=== PATIENT | male | born 1960 | race African-American/Black ===

== ENCOUNTER 2016-09-21 02:59 | Observation (INO) ==
[2016-09-21] MEDS ORDERED: methylPREDNISolone SOD SUC 125 MG/2 ML VIAL IV STA (03:30)
[2016-09-21] MEDS ORDERED: hydrALAZINE 20 MG/1 ML VIAL IV STA (03:30)
[2016-09-21] MEDS ORDERED: ONDANSETRON 4 MG/2 ML VIAL IV STA (03:30)
[2016-09-21] MEDS ORDERED: ASPIRIN 325 MG TABLET PO STA (03:30)
[2016-09-21] MEDS ORDERED: FUROSEMIDE 100 MG/10 ML VIAL IV STA (03:30)
[2016-09-21] MEDS ORDERED: ALBUTEROL/IPRATROPIUM 3 ML NEB RESP TX STA (03:30)
[2016-09-21] MEDS ORDERED: MORPHINE 2 MG/1 ML SYRINGE IV STA (03:30)
[2016-09-21] MEDS ORDERED: NITROGLYCERIN 2% OINT 1 INCH/GM PACK TOP STA (03:30)
[2016-09-21 03:39] LABS: Basophils % 0.4 % (0.0-0.8); Eosinophils # 0.2 10*3/uL (0.0-0.87); Eosinophils % 2.2 % (0.00-10.9); Hematocrit 29.4 VOL% (42.0-52.0); Hemoglobin 9.9 GM/DL (14.0-18.0); Immature Granulocytes % 0.3 %; Immature Granulocytes Absolute 0.02 #; Lymphocytes # 1.9 10*3/uL (1.4-4.0); Lymphocytes % 25.4 % (21.2-54.2); Mean Corpuscular HGB Conc 33.7 GM/DL (32-36); Mean Corpuscular Hemoglobin 32 PG (27-34); Mean Corpuscular Volume 93.6 FL (87-102); Monocytes # 0.7 10*3/uL (0.11-0.8); Monocytes % 8.5 % (1.7-12.7); Neutrophils # 4.8 10*3/uL (1.4-7.4); Neutrophils % 63.2 % (38.7-73.9); Platelet Count 201 T/CUMM (130-400); Red Blood Count 3.14 MC/CUMM (3.8-5.5); Red Cell Distribution Width 15.2 % (9.3-17.3); White Blood Count 7.6 T/CUMM (4-12)
[2016-09-21] MEDS ORDERED: hydrALAZINE 20 MG/1 ML VIAL ONE (03:43)
[2016-09-21] MEDS ORDERED: FUROSEMIDE 100 MG/10 ML VIAL ONE (03:43)
[2016-09-21] MEDS ORDERED: MORPHINE 2 MG/1 ML SYRINGE ONE (03:43)
[2016-09-21] MEDS ORDERED: ASPIRIN 325 MG TABLET ONE (03:43)
[2016-09-21] MEDS ORDERED: NITROGLYCERIN 2% OINT 1 INCH/GM PACK TOP ONE (03:43)
[2016-09-21] MEDS ORDERED: ONDANSETRON 4 MG/2 ML VIAL ONE (03:43)
[2016-09-21] MEDS ORDERED: methylPREDNISolone SOD SUC 125 MG/2 ML VIAL ONE (03:44)
--- NOTE | 2016-09-21 03:48 | Emergency Department Note ---
Willard Kovacs Brittany, am scribing for, and in the presence of, Jaime Crystal MD 03:35. Bonilla Kovacs Charles R, MD, personally performed the services described in this documentation, ascribed by Liseth Lamar in my presence, and it is both accurate and complete 348 . Arrival - Arrival Chief Complaint: Shortness of Breath Stated Complaint: Sob ED Nursing Triage Note: Patient states that he has been having chest pain and shortness of breath that began at 1am this morning. Denies nausea or vomiting. Patient is on dialysis on MWF with last dialysis on Thursday. Other history of HTN. O2 saturation 99% on room air. Mode of Arrival: Wheelchair Limitations: No Limitations Source: Patient Time Seen by Provider: 09/21/16 03:15 - History of Present Illness HPI Narrative: This is a 55 y/o black obese male,who presents to the ED with c/o dyspnea which started at 0100 this morning. He states he has been "off his diet" so to speak. He reports eating a salty diet and drinking sodas over the weekend. He denies any CP. He reports this is not the first time this has happened. Pt has no other complaints/pain in the ED at this time. Pt has a PMHx of HTN, IDDM, and dialysis MWF. Pt denies a surgical Hx. Pt denies a family medical Hx. Pt is a current every day, although he reports he quit smoking 4 days ago, but denies the use of street drugs and alcohol. Onset (ago): hour(s) (Started at 0100 thi morning) Consistency: constant Severity: moderate, similar to previous episodes Allergies/Adverse Reactions: Allergies Allergy/AdvReac Type Severity Reaction Status Date / Time ibuprofen Allergy RASH Verified 09/21/16 03:07 Home Medications: Home Medications Medication Instructions Recorded Confirmed Type Unable To Obtain [Unable to Obtain] 09/21/16 09/21/16 History Review of System - Review of System 12 point system: reviewed and no additional remarkable complaints except as stated - Review of System Cardiovascular: Present: dyspnea on exertion. Absent: chest pain Medical,Surgical,& Family Hx - Medical History Medical History: noncontributory (failure) Cardio: History of: Hypertension Neurology: No history of: Seizures Endocrine: History of: Diabetes Mellitus (IDDM) Renal: History of: Dialysis (MWF), Renal Failure - Social History Smoking Status: Current every day smoker Frequency of Alcohol Use: None Type of Drug Use: None Exam Vital Signs: Vital Signs Temperature 98.1 F 09/21/16 03:25 Pulse Rate 63 09/21/16 03:50 Respiratory Rate 22 09/21/16 03:50 Blood Pressure 234/103 09/21/16 03:25 O2 Sat by Pulse Oximetry 100 09/21/16 03:50 - General General appearance: alert, in no apparent distress - Head Head exam: Present: atraumatic, normocephalic, normal inspection - Eye Eye exam: Present: normal appearance, PERRL, EOMI. Absent: nystagmus, miosis, mydriasis - ENT ENT exam: Present: normal exam, normal oropharynx, mucous membranes moist, TM's normal bilaterally, normal external ear exam - Neck Neck exam: Present: normal inspection, full ROM, trachea midline. Absent: tenderness, meningismus, lymphadenopathy, thyromegaly - Chest Chest inspection: Present: normal inspection, symmetric chest wall rise. Absent : tenderness, rash, abscess - Respiratory Respiratory exam: Present: rales, wheezes - Cardiovascular Cardiovascular exam: Present: regular rate, normal rhythm, normal heart sounds. Absent: murmur, rubs, gallop, clicks, JVD - Abdominal Exam Abdominal exam: Present: soft, normal bowel sounds, other (Protrudent abdomen). Absent: distention, tenderness, guarding, rebound, rigidity Course - Consultations Consultation #1: Hospitalist will admit patient Time: 04:36 Results - Labs CBC & BMP: 09/21/16 03:29 09/21/16 03:29 Lab Results: I have reviewed the patients labs Labs: Laboratory Tests 09/21/16 09/21/16 09/21/16 03:29 03:29 03:29 WBC 7.6 RBC 3.14 L Hgb 9.9 L Hct 29.4 L MCV 93.6 MCH 32 MCHC 33.7 RDW 15.2 Plt Count 201 MPV 11.0 Neut % (Auto) 63.2 Lymph % (Auto) 25.4 Orange % (Auto) 8.5 Eos % (Auto) 2.2 Baso % (Auto) 0.4 Neut # (Auto) 4.8 Lymph # (Auto) 1.9 [place] # (Auto) 0.7 Eos # (Auto) 0.2 Baso # (Auto) 0.0 Immature Gran % 0.3 Nucleated RBC % 0.0 Immature Gran # 0.02 Nucleated RBCs # 0.00 Sodium 137 Potassium 3.8 Chloride 97 L Carbon Dioxide 32 Anion Gap 11.8 BUN 46 H Creatinine 9.40 H GFR Calculation 8 BUN/Creatinine Ratio 4.00 L Glucose 201 H Calculated Osmolality 290.8 Calcium 9.2 Magnesium 2.6 H Total Bilirubin < 0.39 AST 31 ALT 34 Alkaline Phosphatase 144 H Troponin I 0.046 H B-Natriuretic Peptide 911 H Total Protein 7.9 Albumin 3.5 Globulin 4.4 H Albumin/Globulin Ratio 0.7 L Critical Care Time Critical Care Time: Yes Total Critical Care Time: 60 Disposition Clinical Impression: Congestive heart failure, Acute exacerbation of chronic obstructive airways disease, ESRD (end stage renal disease) on dialysis, Acute dyspnea, Atypical chest pain, Elevated troponin Case discussed with: patient, patient's family Disposition: Still a Patient Condition: Guarded Time of Disposition: 04:40
[2016-09-21 04:07] LABS: Alanine Aminotransferase 34 U/L (16-61); Albumin 3.5 G/DL (3.4-5.0); Alkaline Phosphatase 144 U/L (45-117); Aspartate Amino Transferase 31 U/L (0-37); Bilirubin,Total < 0.39 MG/DL (0.2-1.0); Calcium 9.2 MG/DL (8.5-10.1); Total Protein 7.9 G/DL (6.4-8.3)
[2016-09-21 04:08] LABS: Blood Urea Nitrogen 46 MG/DL (7-18); Glucose 201 MG/DL (74-106); Magnesium 2.6 MG/DL (1.8-2.4); Osmolality,Calculated 290.8 MOS/KG (273-304); Potassium 3.8 MMOL/L (3.5-5.1); Sodium 137 MMOL/L (136-145)
[2016-09-21 04:13] LABS: Troponin I Only 0.046 NG/ML (0.00-0.045)
[2016-09-21] MEDS ORDERED: ACETAMINOPHEN 325 MG TABLET PO PRN (04:51)
[2016-09-21] MEDS ORDERED: GLUCAGON 1 MG VIAL IM PRN (04:51)
[2016-09-21] MEDS ORDERED: DEXTROSE 50% 25 GM/50 ML VIAL IV PRN (04:51)
[2016-09-21] MEDS ORDERED: ONDANSETRON 4 MG/2 ML VIAL IV PRN (04:51)
--- NOTE | 2016-09-21 05:00 | Hospitalist History & Physical ---
Assessment and Plan (1) ESRD (end stage renal disease) on dialysis Status: Acute Assessment and plan: Admit to the hospitalist service and monitored MedSurg bed with consult to nephrology for hemodialysis in the a.m. Patient's normal schedule is Thursday he indicates he had a Thursday with 2 L off. Current Visit: Yes (2) Fluid overload, unspecified Status: Acute Assessment and plan: Nephrology consult for hemodialysis. 1800-calorie ADA diet with 1000 mL fluid restriction. Current Visit: Yes (3) Acute dyspnea Status: Acute Assessment and plan: Likely due to fluid overload due to noncompliance with diet over the weekend. Supplemental oxygen hemodialysis in a.m. per nephrology. Current Visit: Yes (4) Diabetes Status: Acute Assessment and plan: Accu-Cheks before meals and at bedtime with submental sliding scale. Patient is unaware of home medications. 1800-calorie ADA diet. Current Visit: Yes Qualifiers: Diabetes mellitus complication status: with kidney complications Diabetes mellitus complication detail: with chronic kidney disease Chronic kidney disease stage: on chronic dialysis History of Present Illness Chief complaint: Short of breath History of present illness: Mr. Merritt is a 55 year old -[place] male with past medical history of iujxfnitbjxl-Ikvvvy-Voqkxdied-Thursday, hypertension, & diabetes presents to the ED tonight with chief complaint of shortness of breath that started approximately 1 AM this morning. Patient reports he had dialysis on Thursday but he feels that they did not pull the fluid off of him. His "friend" is at bedside reports that the had a watermelon over the course of the weekend. Initial workup in the ER included a hemoglobin of 9.9, hematocrit 29.4, BUN 46, creatinine 9.40, glucose 201, mag 2.6 proBNP 911, and chest x-ray is pending. The patient be admitted to the MedSurg unit with monitoring under service the hospital for further evaluation and treatment Home Medications Medication Instructions Recorded Confirmed Type Unable To Obtain [Unable to Obtain] 09/21/16 09/21/16 History Allergies Allergy/AdvReac Type Severity Reaction Status Date / Time ibuprofen Allergy RASH Verified 09/21/16 03:07 Medical,Surgical,& Family Hx - Medical History Cardio: History of: Hypertension Neurology: No history of: Seizures Endocrine: History of: Diabetes Mellitus (IDDM) Renal: History of: Dialysis (MWF), Renal Failure - Surgical History Additional Surgical History: AV graft placement - Family History Family History: Reports;: Family Diabetes, Family Hypertension - Social History Smoking Status: Former smoker Frequency of Alcohol Use: None Type of Drug Use: None Marital Status: Single Lives With:: Significant Other Functional capacity: independent ambulation - Respiratory Respiratory: Present: dyspnea - Gastrointestinal Gastrointestinal: Present: constipation Exam - Constitutional Vitals: Period Temp Pulse Resp BP Sys/Torre Pulse Ox Last 24 Hr 98.1 F-98.1 F 61-71 20-22 234-234/103-103 96-100 General appearance: over weight - Head Head exam: Present: normal inspection - Eye Pupils: Present: ASHKAN - Respiratory Respiratory exam: Present: clear to auscultation bilaterally - Cardiovascular Cardiovascular exam: Present: other (AV graft to right upper arm with positive thrill & bruit) - GI/Abdominal GI/Abdominal exam: Present: normal bowel sounds - Extremities Exam Extremities exam: Present: normal inspection - Neurological Exam Neurological exam: Present: alert, oriented X3 - Psychiatric Psychiatric exam: Present: normal affect, normal mood - Skin Skin exam: Present: normal color Results - Labs CBC & BMP: 09/21/16 03:29 09/21/16 03:29 Lab Results: I have reviewed the past 24 hour labs - Diagnostic Findings Procedure: Chest x-ray: pending Quality Measures - Stroke Presenting Symptoms: Broca's dysphasia
--- NOTE | 2016-09-21 08:16 | XRay Report ---
Single view of the chest. Indication: Shortness of breath. Comparison: February 20, 2014. The heart is enlarged. The pulmonary vasculature is prominent. No consolidation, pneumothorax, or pleural effusion. Degenerative changes are present at the shoulders and spinal column. Impression: Cardiomegaly and venous congestion. PROCEDURE INTERPRETED AT [facility] DEPARTMENT OF RADIOLOGY Final Report Signed by: Dr. Constance Maldonado
[2016-09-21] MEDS: INSULIN REGULAR 100 UNIT/ML SUBCUT SCH ×4 (08:35→20:56)
--- NOTE | 2016-09-21 09:21 | Nephrology Consult Note ---
History of Present Illness Chief complaint: Shortness of breath History of present illness: Mr. Merritt is a 55 year old male with end-stage renal disease who dialyzes on Thursday basis in [facility]. Patient presented to the emergency room earlier this morning with complaints of shortness of breath. The patient states he was sleeping when he awoke about 3 AM this morning with severe shortness of breath. He also was coughing up thick phlegm. The patient had some associated chest pain as well. The patient states his last dialysis was this past Thursday and wonders if he did not have enough pulled off. The patient also thinks that he gained a lot of fluid since his dialysis Thursday stating that he ate some watermelon yesterday. Patient states he had a similar problem with shortness of breath like this in the remote past. He denies any heart disease stating that he had a coronary angiogram done about a year ago that was unremarkable. The patient states his breathing is much improved now and is better since sitting up. ROS: Head -positive headaches ENT - denies sore throat Lymphatics - denies lymphadenopathy Hematology - denies bleeding problems Heart -positive chest pain Lungs -see HPI Abdomen - denies abdominal pain Musculoskeletal -positive arthritis Skin - denies rash Neurology - denies stroke General - denies fever, complains of chills PE: General: in no acute distress Eyes: Pupils are round and reactive, conjunctivae are clear ENT: Nose is clear, O/P is benign Neck: Supple, no thyromegaly Lymphatics: No cervical, supraclavicular or axillary adenopathy Heart: Regular rate and rhythm, no edema Lungs: He has some bibasilar crackles posteriorly, chest expansion symmetric Abdomen: Soft, normoactive bowel sounds, no hepatomegaly Musculoskeletal: No joint erythema or effusions or joint asymmetry Skin: Normal turgor, normal hydration, no rash Neuro/Psych: Alert and cooperative with fair insight Home Medications Medication Instructions Recorded Confirmed Type Unable To Obtain [Unable to Obtain] 09/21/16 09/21/16 History Allergies Allergy/AdvReac Type Severity Reaction Status Date / Time ibuprofen Allergy RASH Verified 09/21/16 03:07 Medical,Surgical,& Family Hx - Medical History Cardio: History of: Hypertension Neurology: No history of: Seizures Endocrine: History of: Diabetes Mellitus (IDDM) Renal: History of: Dialysis (MWF), Renal Failure - Surgical History HEENT Surgeries: Surgical HX of: Eye Surgery (bilateral cataracts) - Family History Family History: Reports;: Family Diabetes, Family Hypertension - Social History Smoking Status: Former smoker (States he quit 5 days ago) Frequency of Alcohol Use: None Type of Drug Use: None Exam - Vital Signs Vital signs: Period Temp Pulse Resp BP Sys/Torre Pulse Ox Last 24 Hr 98.1 F-98.1 F 61-83 18-22 184-234/85-107 96-100 Results - Labs CBC & BMP: 09/21/16 03:29 09/21/16 03:29 Assessment and Plan (1) ESRD (end stage renal disease) on dialysis Status: Acute Assessment and plan: We will plan on hemodialysis tomorrow Current Visit: Yes (2) Hypertension Status: Acute Assessment and plan: Patient states he takes clonidine 0.2 mg twice a day at home he wants to try and come off of this due to side effects. Current Visit: Yes (3) Acute dyspnea Status: Acute Assessment and plan: This patient admits to noncompliance with fluid restriction between his dialysis. We will plan on vigorous ultrafiltration tomorrow as tolerated, the patient is comfortable now sitting up. Current Visit: Yes (4) Diabetes Status: Acute Assessment and plan: Patient takes insulin at home as needed Current Visit: Yes Qualifiers: Diabetes mellitus complication status: with kidney complications Diabetes mellitus complication detail: with chronic kidney disease Chronic kidney disease stage: on chronic dialysis (5) Fluid overload, unspecified Status: Acute Current Visit: Yes
[2016-09-21] MEDS ORDERED: traMADol 50 MG TABLET PO PRN (09:25)
[2016-09-21] MEDS ORDERED: ZALEPLON 5 MG CAPSULE PO PRN (10:00)
[2016-09-21] MEDS: LORazepam 0.5 MG TABLET PO PRN ×2 (10:18→20:50)
[2016-09-21] MEDS: amLODIPine 2.5 MG TABLET PO SCH (10:19)
[2016-09-21] MEDS: cloNIDine 0.1 MG TABLET PO SCH ×2 (10:19→20:50)
[2016-09-21] MEDS ORDERED: hydrALAZINE 20 MG/1 ML VIAL IV PRN (11:36)
[2016-09-21] MEDS ORDERED: MORPHINE 2 MG/1 ML SYRINGE IV PRN (13:10)
--- NOTE | 2016-09-21 14:26 | EKG Report ---
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
[2016-09-21] MEDS: INSULIN NPH/REGULAR 70/30 100 UNIT/ML SUBCUT SCH (18:20)
[2016-09-22 06:13] LABS: Basophils % 0.2 % (0.0-0.8); Eosinophils % 0.1 % (0.00-10.9); Hematocrit 27.5 VOL% (42.0-52.0); Hemoglobin 9.2 GM/DL (14.0-18.0); Immature Granulocytes % 0.7 %; Immature Granulocytes Absolute 0.06 #; Lymphocytes # 1.8 10*3/uL (1.4-4.0); Lymphocytes % 21.4 % (21.2-54.2); Mean Corpuscular HGB Conc 33.5 GM/DL (32-36); Mean Corpuscular Hemoglobin 31 PG (27-34); Mean Corpuscular Volume 92.9 FL (87-102); Mean Platelet Volume 10.9 FL (9.6-12.0); Monocytes # 0.7 10*3/uL (0.11-0.8); Monocytes % 8.4 % (1.7-12.7); Neutrophils # 5.7 10*3/uL (1.4-7.4); Neutrophils % 69.2 % (38.7-73.9); Platelet Count 226 T/CUMM (130-400); Red Blood Count 2.96 MC/CUMM (3.8-5.5); Red Cell Distribution Width 15.4 % (9.3-17.3); White Blood Count 8.2 T/CUMM (4-12)
[2016-09-22 06:49] LABS: Calcium 9.2 MG/DL (8.5-10.1); Magnesium 2.7 MG/DL (1.8-2.4); Osmolality,Calculated 298.8 MOS/KG (273-304); Potassium 4.4 MMOL/L (3.5-5.1)
[2016-09-22] MEDS ORDERED: IRON SUCROSE 100 MG/5 ML VIAL IV SCH (09:30)
[2016-09-22] MEDS: INSULIN NPH/REGULAR 70/30 100 UNIT/ML SUBCUT SCH (10:03)
[2016-09-22] MEDS: INSULIN REGULAR 100 UNIT/ML SUBCUT SCH ×3 (10:03→14:22)
[2016-09-22] MEDS: cloNIDine 0.1 MG TABLET PO SCH (10:05)
[2016-09-22] MEDS: amLODIPine 2.5 MG TABLET PO SCH (10:06)
--- NOTE | 2016-09-22 10:58 | Nephrology Progress Note ---
Nephrology - PN: Subj Interval history: Patient seen on hemodialysis, he is tolerating this well will continue his treatment unchanged. From a renal standpoint it is okay to discharge the patient home today. Exam (PN)-Nephrology - Vital Signs Vital signs: Period Temp Pulse Resp BP Sys/Torre Pulse Ox Last 24 Hr 97.0 F-98.2 F 69-83 18-22 171-201/65-107 93-99 - Lab 09/22/16 06:05 09/22/16 06:05 Most recent lab results Calcium 9.2 MG/DL (8.5-10.1) 09/22/16 06:05 Magnesium 2.7 MG/DL (1.8-2.4) H 09/22/16 06:05 Assessment and Plan (1) ESRD (end stage renal disease) on dialysis Status: Acute Assessment and plan: We will plan on hemodialysis tomorrow Current Visit: Yes (2) Hypertension Status: Acute Assessment and plan: Patient states he takes clonidine 0.2 mg twice a day at home he wants to try and come off of this due to side effects. Current Visit: Yes (3) Acute dyspnea Status: Acute Assessment and plan: This patient admits to noncompliance with fluid restriction between his dialysis. We will plan on vigorous ultrafiltration tomorrow as tolerated, the patient is comfortable now sitting up. Current Visit: Yes (4) Diabetes Status: Acute Assessment and plan: Patient takes insulin at home as needed Current Visit: Yes Qualifiers: Diabetes mellitus complication status: with kidney complications Diabetes mellitus complication detail: with chronic kidney disease Chronic kidney disease stage: on chronic dialysis (5) Fluid overload, unspecified Status: Acute Current Visit: Yes
--- NOTE | 2016-09-22 12:05 | Discharge Summary ---
Hospital Course - Hospital Course Hospital Course: Mr. Merritt is a 55 year old -[place] male with past medical history of ESRD on fkhdrkghevum-Crmsls-Tzjuqiqcs-Thursday, hypertension, & diabetes presented to the ED with chief complaint of shortness of breath that started approximately 1 AM the morning of presentation. Patient reported he had dialysis on Thursday but he felt that they did not pull the fluid off of him. His "friend" is at bedside reported that he had a watermelon over the course of the weekend. Patient was admitted to the hospitalist service. Nephrology was consulted. He underwent HD today. He is eager for discharge. He has now reached maximal benefit of inpatient stay and will be discharged to home. - Time spent with patient Time with patient DS: Less than 30 minutes (25) Diagnosis - Discharge Diagnosis (1) ESRD (end stage renal disease) on dialysis Status: Chronic (2) Fluid overload, unspecified Status: Resolved (3) Diabetes Status: Resolved Discharge Plan - Discharge Data Disposition: Disch To Home/Self Care Condition at Discharge: Stable Discharge Diet: low salt diet Activity: increase activity as tolerated Hygiene: no restrictions Weight Bearing at Discharge: weight bear as tolerated Driving: no restrictions Contact your physician if you experience:: fever over 101, Shortness of breath - Discharge Medications New Insulin NPH/Regular 70/30 [HumuLIN 70/30] 20 unit SUBCUT BIDAC unit amLODIPine [Norvasc] 5 mg PO DAILY #30 tablet cloNIDine TAB [Catapres Tab] 0.1 mg PO BID #60 tablet Discontinued cloNIDine TAB [Catapres Tab] 1 tablet PO TID - Follow Up or Referral - Forms/Instructions Exam - Constitutional Vitals: Period Temp Pulse Resp BP Sys/Torre Pulse Ox Last 24 Hr 97.3 F-98.2 F 69-76 18-22 171-201/65-96 98-99 General appearance: normal weight - Head Head exam: Present: normocephalic, atraumatic - Eye Eye exam: Present: EOMI Pupils: Present: ASHKAN - ENT ENT exam: Present: normal exam - Neck Neck exam: Present: normal inspection - Respiratory Respiratory exam: Present: clear to auscultation bilaterally. Absent: rhonchi, wheezes - Cardiovascular Cardiovascular exam: Present: regular rate and rhythm - GI/Abdominal GI/Abdominal exam: Present: normal bowel sounds, soft. Absent: tenderness, rebound - Extremities Exam Extremities exam: Present: normal inspection - Back Exam Back exam: Present: normal inspection - Neurological Exam Neurological exam: Present: alert, oriented X3 - Psychiatric Psychiatric exam: Present: normal affect, normal mood - Skin Skin exam: Present: warm, intact Discharge Results Labs on day of discharge: Labs from last 24 hours 09/22/16 09/22/16 09/22/16 08:22 06:05 06:05 WBC 8.2 RBC 2.96 L Hgb 9.2 L Hct 27.5 L MCV 92.9 MCH 31 MCHC 33.5 RDW 15.4 Plt Count 226 MPV 10.9 Neut % (Auto) 69.2 Lymph % (Auto) 21.4 [place] % (Auto) 8.4 Eos % (Auto) 0.1 Baso % (Auto) 0.2 Neut # (Auto) 5.7 Lymph # (Auto) 1.8 [place] # (Auto) 0.7 Eos # (Auto) 0.0 Baso # (Auto) 0.0 Immature Gran % 0.7 Nucleated RBC % 0.0 Immature Gran # 0.06 Nucleated RBCs # 0.00 Sodium 137 Potassium 4.4 Chloride 97 L Carbon Dioxide 30 Anion Gap 14.4 BUN 79 H Creatinine 12.10 H GFR Calculation 6 BUN/Creatinine Ratio 6.00 Glucose 142 H POC Glucose 193 H Calculated Osmolality 298.8 Calcium 9.2 Magnesium 2.7 H 09/21/16 09/21/16 20:21 15:56 WBC RBC Hgb Hct MCV MCH MCHC RDW Plt Count MPV Neut % (Auto) Lymph % (Auto) [place] % (Auto) Eos % (Auto) Baso % (Auto) Neut # (Auto) Lymph # (Auto) [place] # (Auto) Eos # (Auto) Baso # (Auto) Immature Gran % Nucleated RBC % Immature Gran # Nucleated RBCs # Sodium Potassium Chloride Carbon Dioxide Anion Gap BUN Creatinine GFR Calculation BUN/Creatinine Ratio Glucose POC Glucose 385 H 366 H Calculated Osmolality Calcium Magnesium DS: Provider Date of admission: 09/21/16 04:51 Primary care physician: . No PCP Attending physician on admission: Frank Paul MD Consults: 09/21/16 04:51 Consult to Physician [CONS] Routine Comment: Consulting Provider: Frank Haile Consult to Specialist Group: Nephrology When should Consulting Provider be notified: In am Person Notified: dr. haile Date Notified: 09/21/16 Time Notified: 08:00 Consult Notification Comment: SPOKE TO MITCH ON Thursday09/21/16 10:43 Consult to Physician [CONS] Routine Comment: Eval AV fistula changes Consulting Provider: Leonard Hennessy Person Notified: dr. hennessy Date Notified: 09/21/16 Time Notified: 13:00 Discharging clinician: Mary Mckeon MD
[2016-09-22] MEDS ORDERED: PNEUMOCOCCAL VACCINE (13 VALENT) 0.5 ML SYRINGE IM ONE (14:10)
[2016-09-22 14:45] VITALS: BP 135/69
--- NOTE | 2016-09-22 21:04 | General Surgery Consult Note ---
Assessment and Plan (1) Pseudoaneurysm of surgical AV fistula Status: Acute Assessment and plan: These are minimal and will improve with time if the dialysis nurses move the needles around. The patient can be discharged home. I will see him back as needed. History of Present Illness Chief complaint: Right upper arm AV fistula pseudoaneurysms History of present illness: Mr. Merritt is a 55 year old male who has been dialyzing with right upper arm AV fistula and has developed some pseudoaneurysms that I was asked to see him for. The fistula is working well. This note reflects an encounter I had with the patient earlier in the day but he has already been discharged home and I wrote the note. I did see and examine him for Home Medications Medication Instructions Recorded Confirmed Type Insulin NPH/Regular 70/30 [HumuLIN 20 unit SUBCUT BIDAC unit 09/22/16 Rx 70/30] amLODIPine [Norvasc] 5 mg PO DAILY #30 tablet 09/22/16 Rx cloNIDine TAB [Catapres Tab] 0.1 mg PO BID #60 tablet 09/22/16 Rx Allergies Allergy/AdvReac Type Severity Reaction Status Date / Time ibuprofen Allergy RASH Verified 09/21/16 03:07 Medical,Surgical,& Family Hx - Medical History Cardio: History of: Hypertension Neurology: No history of: Seizures Endocrine: History of: Diabetes Mellitus (IDDM) Renal: History of: Dialysis (MWF), Renal Failure - Surgical History HEENT Surgeries: Surgical HX of: Eye Surgery (bilateral cataracts) - Family History Family History: Reports;: Family Diabetes, Family Hypertension - Social History Smoking Status: Former smoker (States he quit 5 days ago) Frequency of Alcohol Use: None Type of Drug Use: None - Constitutional Constitutional: Present: as per HPI - EENT Nose, mouth and throat: Present: as per HPI - Cardiovascular Cardiovascular: Present: as per HPI - Respiratory Respiratory: Present: as per HPI - Gastrointestinal Gastrointestinal: Present: as per HPI - Genitourinary Genitourinary: Present: as per HPI - Musculoskeletal Musculoskeletal: Present: as per HPI - Neurological Neurological: Present: as per HPI - Endocrine Endocrine: Present: as per HPI Hematologic/Lymphatic: Present: as per HPI Exam - Constitutional Vitals: Period Temp Pulse Resp BP Sys/Torre Pulse Ox Last 24 Hr 97.3 F-98.2 F 69-75 18-22 135-197/65-81 98-99 General appearance: no acute distress, over weight - Head Head exam: Present: normal inspection, normocephalic - Eye Eye exam: Present: EOMI Pupils: Present: ASHKAN - ENT ENT exam: Present: normal exam Mouth exam: Present: normal external inspection, normal voice - Neck Neck exam: Present: normal inspection, trachea midline - Respiratory Respiratory exam: Present: clear to auscultation bilaterally. Absent: accessory muscle use, chest wall tenderness - Cardiovascular Cardiovascular exam: Present: RRR. Absent: systolic murmur, tachycardia - GI/Abdominal GI/Abdominal exam: Present: normal bowel sounds, soft. Absent: tenderness, rebound - Extremities Exam Extremities exam: Present: other (There are 2 small pseudoaneurysms in the right upper arm.) - Back Exam Back exam: Present: normal inspection - Neurological Exam Neurological exam: Present: alert, oriented X3 Speech: Present: normal - Skin Skin exam: Present: normal color, warm Quality Measures - Stroke Presenting Symptoms: Broca's dysphasia Results - Labs CBC & BMP: 09/22/16 06:05 09/22/16 06:05
== END 2016-09-22 14:55 | disposition home or self-care (01) ==
LOC: N.ED 02:59 → N.EDINP 02:59 → SUATTDRO 04:51 → N.2E 05:16
PROVIDERS: ADMIT Internal Medicine; ATTEND Internal Medicine

== ENCOUNTER 2016-10-29 10:48 | Observation (INO) ==
[~2016-10-29 10:48] MED LIST: LIDOCAINE 2% 5 ML VIAL ONE; ONDANSETRON 4 MG/2 ML VIAL ONE; PHENYLEPHRINE 1 MG/10 ML SYRINGE IV ONE; PROPOFOL 200 MG/20 ML VIAL IV ONE
[2016-10-29 11:35] LABS: Basophils % 0.2 % (0.0-0.8); Eosinophils # 0.2 10*3/uL (0.0-0.87); Eosinophils % 2.1 % (0.00-10.9); Immature Granulocytes % 0.3 %; Immature Granulocytes Absolute 0.03 #; Lymphocytes # 1.6 10*3/uL (1.4-4.0); Lymphocytes % 17.1 % (21.2-54.2); Mean Corpuscular HGB Conc 34.3 GM/DL (32-36); Mean Corpuscular Hemoglobin 32 PG (27-34); Mean Corpuscular Volume 93.1 FL (87-102); Mean Platelet Volume 10.5 FL (9.6-12.0); Monocytes # 0.9 10*3/uL (0.11-0.8); Monocytes % 9.1 % (1.7-12.7); Neutrophils # 6.8 10*3/uL (1.4-7.4); Neutrophils % 71.2 % (38.7-73.9); Platelet Count 203 T/CUMM (130-400); Red Blood Count 3.76 MC/CUMM (3.8-5.5); Red Cell Distribution Width 16.2 % (9.3-17.3); White Blood Count 9.6 T/CUMM (4-12)
[2016-10-29] MEDS ORDERED: HYDROmorphone 2 MG/1 ML VIAL IM STA (11:48)
[2016-10-29] MEDS ORDERED: ONDANSETRON 4 MG/2 ML VIAL IV STA (11:50)
[2016-10-29] MEDS ORDERED: HYDROmorphone 2 MG/1 ML VIAL ONE (11:51)
[2016-10-29] MEDS ORDERED: ONDANSETRON 4 MG/2 ML VIAL ONE (11:51)
[2016-10-29 11:56] LABS: Alanine Aminotransferase 18 U/L (16-61); Albumin 3.5 G/DL (3.4-5.0); Alkaline Phosphatase 159 U/L (45-117); Aspartate Amino Transferase 19 U/L (0-37); Bilirubin,Total < 0.39 MG/DL (0.2-1.0); Blood Urea Nitrogen 22 MG/DL (7-18); Calcium 9.5 MG/DL (8.5-10.1); Glucose 189 MG/DL (74-106); Potassium 4.1 MMOL/L (3.5-5.1); Sodium 136 MMOL/L (136-145); Total Protein 8.6 G/DL (6.4-8.3)
--- NOTE | 2016-10-29 14:12 | Emergency Department Note ---
Arrival - Arrival Chief Complaint: Abscess Stated Complaint: cyst between leg ED Nursing Triage Note: pt to triage via wc with c/o having hermes rectal abscess. 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 Mode of Arrival: Ambulatory Limitations: No Limitations Source: Patient, Family Time Seen by Provider: 10/29/16 14:04 - History of Present Illness HPI Narrative: Patient complains of a scrotal abscess. States it came up 4 days ago. He has no history of this in the past. He denies any fever. No recent illness. He has a history of hypertension, diabetes and renal failure (dialyzes Thursday). He denies any cardiac history. Allergies/Adverse Reactions: Allergies Allergy/AdvReac Type Severity Reaction Status Date / Time ibuprofen Allergy RASH Verified 10/29/16 11:03 Home Medications: Home Medications Medication Instructions Recorded Confirmed Type Insulin NPH/Regular 70/30 [HumuLIN 20 unit SUBCUT BIDAC unit 09/22/16 Rx 70/30] amLODIPine [Norvasc] 5 mg PO DAILY #30 tablet 09/22/16 Rx cloNIDine TAB [Catapres Tab] 0.1 mg PO BID #60 tablet 09/22/16 Rx Review of System - Review of System 12 point system: reviewed and no additional remarkable complaints except as stated - Review of System Constitutional: Absent: fever Genitourinary male: Present: testicular pain. Absent: discharge, testicular mass Medical,Surgical,& Family Hx - Medical History Cardio: History of: Hypertension Endocrine: History of: Diabetes Mellitus (IDDM) Renal: History of: Dialysis (MWF), Renal Failure - Surgical History HEENT Surgeries: Surgical HX of: Eye Surgery (bilateral cataracts) - Family History Family History: Reports;: Family Diabetes, Family Hypertension - Social History Smoking Status: Former smoker Frequency of Alcohol Use: None Type of Drug Use: None Exam Physical Examination: GENERAL: Alert. No acute distress. HEENT: Normocephalic and atraumatic. There is no nasal drainage. NECK: Normal inspection. Supple. No lymphadenopathy or meningismus. LUNGS: No respiratory distress. ABDOMEN: Soft, nontender and nondistended with normoactive bowel sounds. : Normal uncircumcised external male genitalia. No discharge. There is a 5 x 3 cm abscess to the posterior scrotum, extending into the perineum. Both testicles are tender. BACK: Normal inspection. SKIN: Color normal. Warm and dry. EXTREMITIES: Nontender. Normal range of motion. NEUROLOGICAL/PSYCHIATRIC: Alert and oriented -3 with normal mood and affect. Cranial nerves normal. No motor or sensory deficit. Vital Signs: Vital Signs Temperature 97.9 F 10/29/16 11:13 Pulse Rate 89 10/29/16 12:30 Respiratory Rate 18 10/29/16 12:30 Blood Pressure 181/106 10/29/16 12:30 O2 Sat by Pulse Oximetry 100 10/29/16 11:01 Course - Reevaluation(s) Reevaluation #1: The abscess is a little too large for me to drain here in the ER. I have discussed the patient with Dr. Neal. He is going to see the patient in the ER and take to surgery. He wants the patient held in the ER until he can see him (this may be a couple of hours). Will keep the patient n.p.o. until then. Will also start antibiotics. Dr. Neal prefers Unasyn and gentamicin, however, he requests that I clear this with nephrology. I have paged them. Time: 14:23 Reevaluation #2: I have discussed the patient with Dr. Hansen. He recommends a Unasyn dose of 3 g every 24 hours and a one-time dose of gentamicin 100 mg. Time: 14:30 Results - Labs CBC & BMP: 10/29/16 11:24 10/29/16 11:24 Lab Results: I have reviewed the patients labs Labs: Laboratory Tests 10/29/16 11:24 Total Bilirubin < 0.39 AST 19 ALT 18 Alkaline Phosphatase 159 H Disposition Clinical Impression: Scrotal abscess, ESRD (end stage renal disease) on dialysis, Hypertension Case discussed with: patient, patient's family Disposition: Still a Patient Condition: Stable Time of Disposition: 14:31
[2016-10-29] MEDS ORDERED: HYDROmorphone 2 MG/1 ML VIAL IV STA (14:15)
[2016-10-29] MEDS ORDERED: GENTAMICIN INJ 100 MG in SODIUM CHLORIDE 0.9% 100 ML IV STA (14:31)
[2016-10-29] MEDS ORDERED: AMPICILLIN/SULBACTAM 3,000 MG in SODIUM CHLORIDE 0.9% 100 ML IV STA (14:31)
--- NOTE | 2016-10-29 14:59 | Nephrology Consult Note ---
History of Present Illness Chief complaint: End-stage renal disease in a patient admitted for a leg abscess History of present illness: Mr. Merritt is a 55 year old male who dialyzes on Thursday basis and [facility]. The patient's last dialysis was today prior to presenting here. The patient presented with complaints of any swelling and pain between his legs and into his testicles. The patient states the symptoms started about 3 days prior to his admission. The patient denies having any previous problems like this. He states he was on some ampicillin in the remote past for some upper airway symptoms. He denies any drainage from the swelling area. The patient does have diabetes he states his sugars have been doing pretty well lately. The patient denies any central vein catheters, he dialyzes through a shunt in his right arm. ROS: Head - denies headaches ENT - denies sore throat Lymphatics - denies lymphadenopathy Hematology - denies bleeding problems Heart - denies chest pain Lungs - denies shortness of breath Abdomen - denies abdominal pain Musculoskeletal - denies arthritis, he does complain of some pain and tingling in his toes Skin - denies rash Neurology - denies stroke General - denies fever PE: General: in no acute distress Eyes: Pupils are round and reactive, conjunctivae are clear ENT: Nose is clear, O/P is benign Neck: Supple, no thyromegaly Lymphatics: No cervical, supraclavicular or axillary adenopathy Heart: Regular rate and rhythm, no edema Lungs: Clear to auscultation anteriorly, chest expansion symmetric Abdomen: Soft, normoactive bowel sounds, no hepatomegaly Musculoskeletal: No joint erythema or effusions or joint asymmetry, he has a 5 x 3 cm swollen area in his posterior scrotal region that extends towards the perineum per the ER physician's exam Skin: Normal turgor, normal hydration, no rash Neuro/Psych: Alert and cooperative with good insight Home Medications Medication Instructions Recorded Confirmed Type Insulin NPH/Regular 70/30 [HumuLIN 20 unit SUBCUT BIDAC unit 09/22/16 Rx 70/30] amLODIPine [Norvasc] 5 mg PO DAILY #30 tablet 09/22/16 Rx cloNIDine TAB [Catapres Tab] 0.1 mg PO BID #60 tablet 09/22/16 Rx Allergies Allergy/AdvReac Type Severity Reaction Status Date / Time ibuprofen Allergy RASH Verified 10/29/16 11:03 Medical,Surgical,& Family Hx - Medical History Cardio: History of: Hypertension Neurology: No history of: Seizures Endocrine: History of: Diabetes Mellitus (IDDM) Renal: History of: Dialysis (MWF), Renal Failure - Surgical History HEENT Surgeries: Surgical HX of: Eye Surgery (bilateral cataracts) - Family History Family History: Reports;: Family Diabetes, Family Hypertension - Social History Smoking Status: Former smoker Frequency of Alcohol Use: None Type of Drug Use: None Exam - Vital Signs Vital signs: Period Temp Pulse Resp BP Sys/Torre Pulse Ox Last 24 Hr 97.9 F-97.9 F 89-89 17-18 149-181/83-106 100 Results - Labs CBC & BMP: 10/29/16 11:24 10/29/16 11:24 Assessment and Plan (1) ESRD (end stage renal disease) on dialysis Status: Chronic Assessment and plan: We will continue hemodialysis on a Thursday basis Current Visit: Yes (2) Scrotal abscess Status: Acute Assessment and plan: We will dose the patient with gentamicin and Unasyn we have adjusted it for his dialysis will plan on continuing gentamicin every hemodialysis treatment his Unasyn he will get every 24 hours Current Visit: Yes (3) Diabetic neuropathy Status: Acute Current Visit: Yes (4) Hypertension Status: Acute Current Visit: Yes (5) Diabetes Status: Resolved Assessment and plan: I will monitor his sugars twice a day and administer insulin as needed for sugar greater than 250 as he does at home. Current Visit: No Qualifiers: Diabetes mellitus complication status: with kidney complications Diabetes mellitus complication detail: with chronic kidney disease Chronic kidney disease stage: on chronic dialysis
[2016-10-29] MEDS ORDERED: DEXTROSE 50% 25 GM/50 ML SYRINGE IV PRN ×2 (15:02→18:49)
[2016-10-29] MEDS ORDERED: GLUCAGON 1 MG VIAL IM PRN ×2 (15:02→18:49)
--- NOTE | 2016-10-29 15:37 | XRay Report ---
Portable chest Date: 10/29/2016 Clinical history: Respiratory preoperative evaluation Comparison: 09/29/2016 Technique: Portable AP sitting chest Findings: The heart remains borderline in size with left ventricular prominence and uncoiling of the aorta. Resolution of previously noted pulmonary edema with no pleural effusion. Unremarkable mediastinum with degenerative changes. Impression: No acute cardiopulmonary pathology identified. PROCEDURE INTERPRETED AT [facility] DEPARTMENT OF RADIOLOGY Final Report Signed by: Dr. Padmini Pride
[2016-10-29] MEDS ORDERED: AMPICILLIN/SULBACTAM 3,000 MG VIAL ONE (16:28)
[2016-10-29] MEDS ORDERED: INSULIN REGULAR 100 UNIT/ML SUBCUT SCH (16:30)
--- NOTE | 2016-10-29 17:03 | Urology History & Physical ---
Assessment and Plan - Time spent with patient Time spent with patient: Greater than 30 minutes (1) Perineal abscess Status: Acute Assessment and plan: Antibiotics have been given. He needs incision and drainage. We will plan for this as soon as we can. Current Visit: Yes 12 point system: reviewed and no additional remarkable complaints except as stated - Genitourinary Genitourinary: Present: other (Perineal swelling with pain noticed last for 5 days. He makes no urine) History of Present Illness Chief complaint: Perineal swelling with pain History of present illness: Mr. Merritt is a 55 year old male who has chronic renal failure on hemodialysis now for 6 years. For 5 days ago he noticed some pain and swelling in the perineum is progressively become worse. He presented himself to the urgent care and perineal abscesses been found. He has been given some antibiotics with consultation by Dr. Hansen. He had dialysis this morning. On examination indeed he is got a perineal abscess it is up in the lower part of the scrotum but I think most of this is perineal. I discussed the need for incision and drainage. This was explained to the patient and his . We will clean this up and pack it. Watch the patient overnight and should be able go home tomorrow. Procedure was explained in detail. Risks, complications, outcomes, sequelae, prognosis and alternative therapy was discussed. Patient understood this and agreed to proceed. Home Medications Medication Instructions Recorded Confirmed Type Insulin NPH/Regular 70/30 [HumuLIN 20 unit SUBCUT BIDAC unit 09/22/16 Rx 70/30] amLODIPine [Norvasc] 5 mg PO DAILY #30 tablet 09/22/16 Rx cloNIDine TAB [Catapres Tab] 0.1 mg PO BID #60 tablet 09/22/16 Rx Allergies Allergy/AdvReac Type Severity Reaction Status Date / Time ibuprofen Allergy RASH Verified 10/29/16 11:03 Medical,Surgical,& Family Hx - Medical History Cardio: History of: Hypertension Neurology: No history of: Seizures Endocrine: History of: Diabetes Mellitus (IDDM) Renal: History of: Dialysis (MWF), Renal Failure - Surgical History HEENT Surgeries: Surgical HX of: Eye Surgery (bilateral cataracts) - Family History Family History: Reports;: Family Diabetes, Family Hypertension - Social History Smoking Status: Former smoker Frequency of Alcohol Use: None Type of Drug Use: None Exam - Constitutional Vitals: Period Temp Pulse Resp BP Sys/Torre Pulse Ox Last 24 Hr 97.9 F-97.9 F 89-89 17-18 149-181/83-106 100 General appearance: normal weight - Cardiovascular Cardiovascular exam: Present: regular rate and rhythm - GI/Abdominal GI/Abdominal exam: Present: soft. Absent: tenderness, rebound - Genitourinary Genitourinary: penis with no lesions or discharge, other (Perineal swelling about 4-5 cm long and about 3 cm wide does go up to the lower part of the scrotum) Results - Labs CBC & BMP: 10/29/16 11:24 10/29/16 11:24
[2016-10-29] MEDS ORDERED: PROMETHAZINE 25 MG/1 ML VIAL IM PRN (17:40)
--- NOTE | 2016-10-29 17:49 | Operative Note ---
Date of procedure: 10/29/16 Pre-op diagnosis: Perineal abscess Post-op diagnosis: same Procedure: 55-year-old diabetic black male with chronic renal failure on hemodialysis no some pain and swelling last for 5 days in the perineum. He was seen in urgent care area and he is got a perineal abscesses being brought to surgery for drainage. I&D of perineal abscess was explained at length and in detail. Risks , complications, outcomes, sequela, prognosis and alternative therapy was discussed. Patient understood this and agreed to proceed. Patient is brought to the operative suite given a general LMA anesthetic was tolerated well. He was then prepared and draped in usual sterile manner and placed in lithotomy position. 11 blade was used to incise over the perineum at the abscess. Approximately 30-40 cc of purulent material were drained. Cultures were obtained. Loculations were broken up with a hemostat. The tract went up to the base of the scrotum on the left side. This was irrigated out and any other loculations were broken up. The wound was copiously irrigated normal saline. The wound was then packed with half-inch iodoform gauze. Sterile dressing with fluffs and an OB panics were placed on the patient. Patient tolerates procedure well was awakened anesthesia and sent to recovery room in stable condition. All sponge, needle enhancement counts correct 2. Anesthesia: GETA (25 cc) Surgeon / Physician: Geoffrey Neal Estimated blood loss: other Specimens: other (Cultures) Condition: stable Disposition: PACU Results - Labs CBC & BMP: 10/29/16 11:24 10/29/16 11:24 Discharge Plan - Discharge Medications No Action Insulin NPH/Regular 70/30 [HumuLIN 70/30] 20 unit SUBCUT BIDAC unit amLODIPine [Norvasc] 5 mg PO DAILY #30 tablet cloNIDine TAB [Catapres Tab] 0.1 mg PO BID #60 tablet - Follow Up or Referral - Forms/Instructions
--- NOTE | 2016-10-29 17:57 | Anesthesia Post-Op ---
Anesthesia Post OP - Post Ansesthetic Evaluation Patient seen in post op: Yes Resp: within normal limits CV: within normal limits Mental: within normal limits (pt remains sedate) Temp: within normal limits [id number]: within normal limits Nausea and Vomiting: within normal limits Pain: within normal limits
[2016-10-29] MEDS ORDERED: fentaNYL 100 MCG/2 ML VIAL ONE (17:59)
[2016-10-29] MEDS ORDERED: SEVOFLURANE 1 UNIT/15 MINUTE INH ONE (17:59)
[2016-10-29] MEDS ORDERED: MIDAZOLAM 2 MG/2 ML VIAL ONE (17:59)
[2016-10-29] MEDS ORDERED: ACETAMINOPHEN 1,000 MG/100 ML VIAL IV ONE (18:00)
--- NOTE | 2016-10-29 19:22 | Hospitalist Consult Note ---
Assessment and Plan (1) Perineal abscess Status: Acute Assessment and plan: s/p I&D, received amp and gent, will start meropenem, blood cx pending. Current Visit: Yes (2) ESRD (end stage renal disease) on dialysis Status: Chronic Assessment and plan: dialysis m,w,f Current Visit: Yes (3) Diabetes Status: Resolved Assessment and plan: hgb a1c, cont 70/30, ISC Current Visit: No Qualifiers: Diabetes mellitus complication status: with kidney complications Diabetes mellitus complication detail: with chronic kidney disease Chronic kidney disease stage: on chronic dialysis (4) Hypertension Status: Acute Assessment and plan: cont clonidine and norvasc Current Visit: Yes (5) Diabetic neuropathy Status: Acute Assessment and plan: gabapentin Current Visit: Yes (6) WIN (obstructive sleep apnea) Status: Acute Assessment and plan: refuses cpap Current Visit: Yes History of Present Illness - Data of Consult Consult date: 10/29/16 Requesting Physician: Geoffrey Neal Primary care physician: Frank Hansen - Consult Narrative Reason for consult: diabetes History of present illness: Mr. Merritt is a 55 year old male with a history of hypertension, end-stage renal disease dialysis dependent and insulin-dependent diabetes admitted by Dr. Neal for a perineal abscess. Patient is failed outpatient antibiotics. The abscess is located and part of the scrotum and needs to be I&D. Patient was taken to the OR today and I indeed. We were consulted for help in managing his hypertension and insulin-dependent diabetes. Patient did receive dialysis today at which time they removed 2600 mL's of fluid. His blood pressure would not tolerate any more fluid removal. His last blood sugar was 156. He takes 20 units of 70/30 twice a day. CC: Geoffrey Neal MD - Home Medications and Allergies Home Medications: Home Medications Medication Instructions Recorded Confirmed Type cloNIDine TAB [Catapres Tab] 0.1 mg PO BID #60 tablet 09/22/16 Rx Insulin NPH Hum/Reg Insulin Hm 15 units SUBCUT PC SUPPER 10/29/16 10/29/16 History [NovoLIN 70/30] amLODIPine [Norvasc] 10 mg PO DAILY 10/29/16 10/29/16 History Allergies/Adverse Reactions: Allergies Allergy/AdvReac Type Severity Reaction Status Date / Time ibuprofen Allergy RASH Verified 10/29/16 11:03 Medical,Surgical,& Family Hx - Medical History Cardio: History of: Hypertension Neurology: No history of: Seizures Endocrine: History of: Diabetes Mellitus (IDDM) Respiratory: History of: Obstructive Sleep Apnea Renal: History of: Dialysis (MWF), Renal Failure - Surgical History HEENT Surgeries: Surgical HX of: Eye Surgery (bilateral cataracts) Additional Surgical History: Ports, graft - Family History Family History: Reports;: Family Diabetes, Family Hypertension - Social History Smoking Status: Former smoker Frequency of Alcohol Use: None Type of Drug Use: None Marital Status: Lives With:: Spouse Functional capacity: independent ambulation - Constitutional Constitutional: Present: fatigue, fever(s). Absent: headache(s) - EENT Eyes: Absent: blurry vision, diplopia Ears: Absent: decreased hearing, ear discharge Nose, mouth and throat: Absent: headache(s), sore throat - Cardiovascular Cardiovascular: Absent: chest pain at rest, chest pain with activity, dyspnea, dyspnea on exertion, edema - Respiratory Respiratory: Present: snoring. Absent: dyspnea, dyspnea on exertion - Gastrointestinal Gastrointestinal: Present: constipation. Absent: diarrhea, nausea, vomiting - Genitourinary Genitourinary: Present: testicular pain, other (Does not urinate on his own) - Neurological Neurological: Present: dizziness, headache(s). Absent: confusion, syncope - Psychiatric Psychiatric: Present: depression. Absent: anxiety - Endocrine Endocrine: Present: cold intolerance, fatigue - Hematologic/Lymphatic Hematologic/Lymphatic: Absent: easy bleeding, easy bruising Exam - Constitutional Vitals: Period Temp Pulse Resp BP Sys/Torre Pulse Ox Last 24 Hr 97.9 F-98.7 F 67-89 14-18 107-181/58-106 93-100 General appearance: normal weight, no acute distress - Head Head exam: Present: normal inspection, normocephalic - Eye Eye exam: Present: EOMI. Absent: scleral icterus Pupils: Present: ASHKAN, normal accommodation - ENT ENT exam: Present: normal exam, normal external ear exam - Neck Neck exam: Absent: lymphadenopathy, thyromegaly - Respiratory Respiratory exam: Present: clear to auscultation bilaterally. Absent: rales, rhonchi, wheezes - Cardiovascular Cardiovascular exam: Present: regular rate and rhythm. Absent: systolic murmur - GI/Abdominal GI/Abdominal exam: Present: normal bowel sounds, soft. Absent: tenderness - Extremities Exam Extremities exam: Present: normal inspection, normal capillary refill - Neurological Exam Neurological exam: Present: alert, oriented X3, reflexes normal. Absent: motor sensory deficit - Psychiatric Psychiatric exam: Present: depressed, flat affect - Skin Skin exam: Present: normal color, warm Results - Labs CBC & BMP: 10/29/16 11:24 10/29/16 11:24 Lab Results: I have reviewed the past 24 hour labs - Diagnostic Findings Procedure: Chest x-ray: report reviewed by me (Nothing acute)
[2016-10-29] MEDS: cloNIDine 0.1 MG TABLET PO SCH (20:39)
[2016-10-29] MEDS: MEPERIDINE 50 MG/1 ML VIAL IM PRN (20:40)
[2016-10-29] MEDS: INSULIN REGULAR 100 UNIT/ML SUBCUT SCH (20:40)
[2016-10-29] MEDS ORDERED: MEROPENEM 500 MG in SODIUM CHLORIDE 0.9% 100 ML IV SCH (21:00)
[2016-10-29] MEDS ORDERED: GABAPENTIN 300 MG CAPSULE PO SCH (21:00)
[2016-10-30] MEDS: MEPERIDINE 50 MG/1 ML VIAL IM PRN (04:41)
[2016-10-30 07:01] LABS: Basophils % 0.2 % (0.0-0.8); Eosinophils # 0.3 10*3/uL (0.0-0.87); Eosinophils % 3.1 % (0.00-10.9); Hematocrit 34.8 VOL% (42.0-52.0); Hemoglobin 11.1 GM/DL (14.0-18.0); Immature Granulocytes % 0.9 %; Immature Granulocytes Absolute 0.07 #; Lymphocytes # 1.6 10*3/uL (1.4-4.0); Lymphocytes % 20.2 % (21.2-54.2); Mean Corpuscular HGB Conc 31.9 GM/DL (32-36); Mean Corpuscular Hemoglobin 31 PG (27-34); Mean Corpuscular Volume 96.9 FL (87-102); Monocytes # 0.8 10*3/uL (0.11-0.8); Monocytes % 10.1 % (1.7-12.7); Neutrophils # 5.3 10*3/uL (1.4-7.4); Neutrophils % 65.5 % (38.7-73.9); Platelet Count 219 T/CUMM (130-400); Red Blood Count 3.59 MC/CUMM (3.8-5.5); Red Cell Distribution Width 16.5 % (9.3-17.3); White Blood Count 8.1 T/CUMM (4-12)
[2016-10-30 07:23] VITALS: BP 145/84
[2016-10-30 07:28] LABS: Calcium 9.2 MG/DL (8.5-10.1); Osmolality,Calculated 282.2 MOS/KG (273-304); Potassium 5.1 MMOL/L (3.5-5.1)
[2016-10-30] MEDS ORDERED: INSULIN NPH/REGULAR 70/30 100 UNIT/ML SUBCUT SCH (07:30)
--- NOTE | 2016-10-30 07:58 | Nephrology Progress Note ---
Nephrology - PN: Subj Interval history: Patient denies shortness of breath. Review of systems GI denies nausea or vomiting, -patient status post drainage of scrotal abscess Physical exam general the patient is in no acute distress Assessment/plan 1. End-stage renal disease-we will continue HD support while here 2. Diabetes mellitus we will continue to monitor with sliding scale of insulin 3. Hypertension this is controlled 4. Scrotal abscess-we will continue antibiotics Exam (PN)-Nephrology - Vital Signs Vital signs: Period Temp Pulse Resp BP Sys/Torre Pulse Ox Last 24 Hr 97.0 F-98.7 F 67-89 14-20 107-181/58-106 93-100 - Lab 10/30/16 06:04 10/30/16 06:04 Most recent lab results Calcium 9.2 MG/DL (8.5-10.1) 10/30/16 06:04 Assessment and Plan (1) ESRD (end stage renal disease) on dialysis Status: Chronic Assessment and plan: We will continue hemodialysis on a Thursday basis Current Visit: Yes (2) Scrotal abscess Status: Acute Assessment and plan: We will dose the patient with gentamicin and Unasyn we have adjusted it for his dialysis will plan on continuing gentamicin every hemodialysis treatment his Unasyn he will get every 24 hours Current Visit: Yes (3) Diabetic neuropathy Status: Acute Current Visit: Yes (4) Hypertension Status: Acute Current Visit: Yes (5) Diabetes Status: Resolved Assessment and plan: I will monitor his sugars twice a day and administer insulin as needed for sugar greater than 250 as he does at home. Current Visit: No Qualifiers: Diabetes mellitus complication status: with kidney complications Diabetes mellitus complication detail: with chronic kidney disease Chronic kidney disease stage: on chronic dialysis
[2016-10-30] MEDS: INSULIN REGULAR 100 UNIT/ML SUBCUT SCH (08:13)
[2016-10-30] MEDS: cloNIDine 0.1 MG TABLET PO SCH (08:14)
[2016-10-30] MEDS ORDERED: amLODIPine 5 MG TABLET PO SCH (09:00)
--- NOTE | 2016-10-30 09:50 | Discharge Summary ---
Hospital Course - Hospital Course Hospital Course: Patient is afebrile he is feeling a lot better. His wound is open and the packings been removed it clean. We will send him home and do local care. He will have sitz bath twice a day with Betadine in the water. He will also use soap and water and wash. His cultures are pending but he Gram stain shows gram- positive cocci. He will be discharged on Bactrim and Augmentin. And we will adjust accordingly when the final comes back. But I think he can go home. We will also send him home with some pain medicine. I will see him in 1 week. And then at that time determine whether he needs closure or let it heal secondarily. - Time spent with patient Time with patient DS: Less than 30 minutes Diagnosis - Discharge Diagnosis (1) Perineal abscess Status: Acute Discharge Plan - Discharge Data Disposition: Disch To Home/Self Care Condition at Discharge: Stable Discharge Diet: diabetic diet Activity: resume usual activities as tolerated Hygiene: no restrictions, may shower, may tub bathe, keep area(s) dry (Perineum , keep dressed with OB panties on) Weight Bearing at Discharge: full weight bearing Driving: not until seen by doctor Contact your physician if you experience:: fever over 101, Bleeding - Discharge Medications No Action cloNIDine TAB [Catapres Tab] 0.1 mg PO BID #60 tablet amLODIPine [Norvasc] 10 mg PO DAILY Insulin NPH Hum/Reg Insulin Hm [NovoLIN 70/30] 15 units SUBCUT PC SUPPER - Follow Up or Referral - Forms/Instructions Exam - Constitutional Vitals: Period Temp Pulse Resp BP Sys/Torre Pulse Ox Last 24 Hr 97.0 F-98.7 F 67-89 14-20 107-181/58-106 93-100 Discharge Results Procedures and tests throughout hospitalization: Pending Orders 10/29/16 11:24 Blood Culture Stat 10/29/16 18:22 Abscess Culture Routine Anaerobic Culture Routine 10/31/16 04:00 Comp Blood Count Auto Diff IN AM 11/01/16 04:00 Comp Blood Count Auto Diff IN AM Labs on day of discharge: Labs from last 24 hours 10/30/16 10/30/16 10/30/16 07:21 06:04 06:04 WBC 8.1 RBC 3.59 L Hgb 11.1 L Hct 34.8 L MCV 96.9 MCH 31 MCHC 31.9 L RDW 16.5 Plt Count 219 MPV 11.0 Neut % (Auto) 65.5 Lymph % (Auto) 20.2 L [place] % (Auto) 10.1 Eos % (Auto) 3.1 Baso % (Auto) 0.2 Neut # (Auto) 5.3 Lymph # (Auto) 1.6 [place] # (Auto) 0.8 Eos # (Auto) 0.3 Baso # (Auto) 0.0 Immature Gran % 0.9 Nucleated RBC % 0.0 Immature Gran # 0.07 Nucleated RBCs # 0.00 Immature Plt Fraction 0.0 Sodium 134 L Potassium 5.1 Chloride 98 Carbon Dioxide 28 Anion Gap 13.1 BUN 37 H D Creatinine 8.60 H GFR Calculation 9 BUN/Creatinine Ratio 4.00 L Glucose 212 H POC Glucose 254 H Hemoglobin A1c Calculated Osmolality 282.2 Calcium 9.2 Total Bilirubin AST ALT Alkaline Phosphatase Total Protein Albumin Globulin Albumin/Globulin Ratio 10/29/16 10/29/16 10/29/16 19:46 19:03 18:19 WBC RBC Hgb Hct MCV MCH MCHC RDW Plt Count MPV Neut % (Auto) Lymph % (Auto) [place] % (Auto) Eos % (Auto) Baso % (Auto) Neut # (Auto) Lymph # (Auto) [place] # (Auto) Eos # (Auto) Baso # (Auto) Immature Gran % Nucleated RBC % Immature Gran # Nucleated RBCs # Immature Plt Fraction Sodium Potassium Chloride Carbon Dioxide Anion Gap BUN Creatinine GFR Calculation BUN/Creatinine Ratio Glucose POC Glucose 156 H 156 H Hemoglobin A1c 9.8 H Calculated Osmolality Calcium Total Bilirubin AST ALT Alkaline Phosphatase Total Protein Albumin Globulin Albumin/Globulin Ratio 10/29/16 10/29/16 11:24 11:24 WBC 9.6 RBC 3.76 L Hgb 12.0 L Hct 35.0 L MCV 93.1 MCH 32 MCHC 34.3 RDW 16.2 Plt Count 203 MPV 10.5 Neut % (Auto) 71.2 Lymph % (Auto) 17.1 L [place] % (Auto) 9.1 Eos % (Auto) 2.1 Baso % (Auto) 0.2 Neut # (Auto) 6.8 Lymph # (Auto) 1.6 [place] # (Auto) 0.9 H Eos # (Auto) 0.2 Baso # (Auto) 0.0 Immature Gran % 0.3 Nucleated RBC % 0.0 Immature Gran # 0.03 Nucleated RBCs # 0.00 Immature Plt Fraction 0.0 Sodium 136 Potassium 4.1 Chloride 100 Carbon Dioxide 27 Anion Gap 13.1 BUN 22 H Creatinine 6.00 H GFR Calculation 13 BUN/Creatinine Ratio 3.00 L Glucose 189 H POC Glucose Hemoglobin A1c Calculated Osmolality 279.0 Calcium 9.5 Total Bilirubin < 0.39 AST 19 ALT 18 Alkaline Phosphatase 159 H Total Protein 8.6 H Albumin 3.5 Globulin 5.1 H Albumin/Globulin Ratio 0.6 L Preliminary micro results at discharge 10/29/16 18:22 Abscess Culture - Preliminary Scrotum Gram Positive Cocci DS: Provider Date of admission: 10/29/16 17:00 Primary care physician: . No PCP Attending physician on admission: Geoffrey Neal MD Consults: 10/29/16 18:50 Consult to Physician [CONS] Routine Comment: manage diabetes Consulting Provider: Consult to Specialist Group: Hospitalist Person Notified: aware Consult Notification Comment: Spoke with Dr Paul at 1852, he said that he would relay the message 10/29/16 19:32 Consult to Pharmacy [CONS] Routine Reason for Pharmacy Consult: Other Comment: meropenem dosing, dialysis pt Discharging clinician: Geoffrey Neal MD
== END 2016-10-30 10:57 | disposition home or self-care (01) ==
LOC: N.EDINP 10:48 → N.ED 10:48 → N.5E 18:40
PROVIDERS: ADMIT Urology; ATTEND Urology